=== PATIENT | female | born 2005 ===

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

== ENCOUNTER 2025-02-18 10:42 | Outpatient (CLI) | payer OTHER | END 2025-02-18 10:43 | disposition home or self-care (01) | LOC: MRI 10:42 | PROVIDERS: ATTEND Personal Emergency Response Attendant | DX: R25.1 Tremor, unspecified (principal) | CPT/HCPCS: 70552 ==